=== PATIENT | male | born 1965 | race Caucasian/White ===

== ENCOUNTER 2024-05-04 21:16 | Inpatient (IN) | payer BC ==
[2024-05-04] MEDS ORDERED: fentaNYL PF 100 MCG/2 ML SYRINGE ONE (22:34)
[2024-05-04] MEDS ORDERED: PROPOFOL 20 ML ONE ×4 (22:34→23:39)
[2024-05-04] MEDS ORDERED: Acetaminophen 650 MG Suppository PR PRN (22:48)
[2024-05-04] MEDS ORDERED: Ondansetron PF 4 MG/2 ML Vial IVP PRN (22:48)
[2024-05-04] MEDS ORDERED: Ondansetron ODT 4 MG TAB PO PRN (22:48)
[2024-05-04 22:53] LABS: #Basophils 0.03 10x3/uL (0.0-0.2); %Basophils 0.2 % (0.0-1.0); %Eosinophils 0.9 % (0.0-10.0); %Lymphocytes 7.2 % (21.0-51.0); %Monocytes 7.2 % (0.0-10.0); %Neutrophils 84.3 % (42.0-75.0); Hematocrit 40.4 % (42.0-52.0); Hemoglobin 13.9 g/dL (14.0-18.0); Mean Corpuscular HGB CONC 34.4 g/dL (32.0-36.0); Mean Corpuscular Hemoglobin 30.4 pg (27.0-31.0); Mean Corpuscular Volume 88.4 fL (78.0-98.0); Mean Platelet Volume 12.8 fL (7.4-10.4); Platelet Count 252 10x3/uL (130-400); RBC Distribution Width 12.1 % (11.5-14.5); Red Blood Cell (RBC) Count 4.57 mill/uL (4.70-6.10)
[2024-05-04 23:21] LABS: ALT (SGPT) 29 U/L (8-55); AST (SGOT) 20 U/L (5-34); Albumin 3.5 g/dL (3.5-5.0); Alkaline Phosphatase 97 U/L (40-110); Anion Gap 15 mmol/L (10-20); BUN (Urea Nitrogen) 14 mg/dL (8.4-25.7); Bilirubin, Total 0.6 mg/dL (0.2-1.2); Calc. Creatinine Clearance 0 mL/min (70-130); Calcium 8.5 mg/dL (7.8-10.44); Carbon Dioxide 18 mmol/L (22-29); Chloride 106 mmol/L (98-107); Estimated GFR 71; Globulin 2.8 g/dL (2.4-3.5); Glucose 245 mg/dL (70-105); Potassium 4.1 mmol/L (3.5-5.1); Protein, Total 6.3 g/dL (6.0-8.3); Sodium 135 mmol/L (136-145)
[2024-05-04] MEDS ORDERED: Promethazine HCl 25 MG/ML VIAL IM PRN (23:49)
[2024-05-04] MEDS ORDERED: Ondansetron HCl/PF 4 MG/2 ML Vial IVP PRN (23:49)
[2024-05-05 01:00] LABS: Hematocrit 36.4 % (42.0-52.0); Hemoglobin 12.1 g/dL (14.0-18.0)
[2024-05-05 01:29] VITALS: BMI 36.7
[2024-05-05] MEDS: Acetaminophen 325 MG TAB PO SCH (01:31)
[2024-05-05 04:47] LABS: Hematocrit 36.6 % (42.0-52.0); Hemoglobin 12.2 g/dL (14.0-18.0)
[2024-05-05 04:53] LABS: Hemoglobin A1c 8.1 % (4.0-6.0)
[2024-05-05 04:58] LABS: Anion Gap 10 mmol/L (10-20); BUN (Urea Nitrogen) 12 mg/dL (8.4-25.7); Calc. Creatinine Clearance 128 mL/min (70-130); Calcium 8.2 mg/dL (7.8-10.44); Carbon Dioxide 23 mmol/L (22-29); Chloride 108 mmol/L (98-107); Estimated GFR 77; Glucose 219 mg/dL (70-105); Potassium 4.7 mmol/L (3.5-5.1); Sodium 136 mmol/L (136-145)
[2024-05-05 06:03] VITALS: BP 118/61
[2024-05-05] MEDS: Lactated Ringer's 1,000 ML IV SCH (07:00)
[2024-05-05 07:45] LABS: Hemoglobin 10.3 g/dL (14.0-18.0); Platelet Count 163 10x3/uL (130-400)
[2024-05-05] MEDS: Atorvastatin Calcium 20 MG TAB PO SCH (08:19)
[2024-05-05] MEDS: FLU (Fluarix Triv) TS24-25(6MOS UP)/PF 45 MCG/0.5 ML Syringe IM ONE (08:19)
[2024-05-05] MEDS: Lisinopril 20 MG TAB PO SCH (08:19)
[2024-05-05] MEDS: metFORMIN XR 500 MG ER.TAB PO SCH (08:19)
[2024-05-05] MEDS: Famotidine 20 MG TAB PO SCH (08:19)
[2024-05-05] MEDS: Famotidine/PF 20 mg/2ml Vial SLOW IVP SCH (08:29)
[2024-05-05] MEDS: GoLYTELY 4,000 ml Bottle PO SCH (08:29)
[2024-05-05 09:43] LABS: Hematocrit 31.2 % (42.0-52.0); Hemoglobin 10.5 g/dL (14.0-18.0)
[2024-05-05] MEDS: Insulin Lispro 100 UNIT/ML 10 ML VIAL SC PRN (10:59)
[2024-05-05] MEDS ORDERED: PROPOFOL 20 ML ONE ×3 (15:20→16:57)
[2024-05-05] MEDS ORDERED: Midazolam HCl 2 mg/2 ml Vial ONE (15:20)
[2024-05-05] MEDS ORDERED: Lidocaine 2% PF 5 ML VIAL ONE (15:20)
[2024-05-05] MEDS ORDERED: PHENYLEPHRINE-NS 100 MCG/ML 10 ML SYRINGE ONE (15:50)
[2024-05-05 20:19] VITALS: TEMP 98.5
[2024-05-05] MEDS: Insulin Glargine 30 UNITS/0.3 ML VIAL SC SCH (20:38)
[2024-05-06 03:07] LABS: #Basophils Less than 0.03 10x3/uL (0.0-0.2); %Basophils 0.2 % (0.0-1.0); %Eosinophils 4.3 % (0.0-10.0); %Monocytes 10.1 % (0.0-10.0); %Neutrophils 59.1 % (42.0-75.0); Hemoglobin 9.8 g/dL (14.0-18.0); Mean Corpuscular HGB CONC 33.8 g/dL (32.0-36.0); Mean Corpuscular Hemoglobin 30.6 pg (27.0-31.0); Mean Corpuscular Volume 90.6 fL (78.0-98.0); Mean Platelet Volume 12.2 fL (7.4-10.4); Platelet Count 178 10x3/uL (130-400); RBC Distribution Width 12.4 % (11.5-14.5)
[2024-05-06 04:53] LABS: Anion Gap 10 mmol/L (10-20); BUN (Urea Nitrogen) 8 mg/dL (8.4-25.7); Calc. Creatinine Clearance 136 mL/min (70-130); Calcium 7.9 mg/dL (7.8-10.44); Carbon Dioxide 21 mmol/L (22-29); Chloride 111 mmol/L (98-107); Estimated GFR 83; Glucose 174 mg/dL (70-105); Potassium 3.5 mmol/L (3.5-5.1); Sodium 138 mmol/L (136-145)
== END 2024-05-06 12:04 | disposition home or self-care (01) | DRG 920 ==
LOC: ERS 21:16 → SDC/OP 22:49 → 2NO 05-05 00:06 → CCU 05-05 06:37 → OBSVTOIN 05-05 06:37 → IMCU/EMU 05-05 23:11
PROVIDERS: ADMIT Student in an Organized Health Care Education/Training Program; ATTEND Internal Medicine
PROC: 0W3P8ZZ Control Bleeding in Gastrointestinal Tract, Via Natural or Artificial Opening Endoscopic (ICD-10-PCS; principal; 2024-05-04)
PROC: 0W3P8ZZ Control Bleeding in Gastrointestinal Tract, Via Natural or Artificial Opening Endoscopic (ICD-10-PCS; 2024-05-05)
DX: K91.840 Postprocedural hemorrhage of a digestive system organ or structure following a digestive system procedure (principal); D62 Acute posthemorrhagic anemia; E78.5 Hyperlipidemia, unspecified; I10 Essential (primary) hypertension; E11.9 Type 2 diabetes mellitus without complications; I95.9 Hypotension, unspecified; K21.9 Gastro-esophageal reflux disease without esophagitis; Z79.899 Other long term (current) drug therapy; E66.9 Obesity, unspecified; Z68.36 Body mass index [BMI] 36.0-36.9, adult
CPT/HCPCS: 36415; 36416; 80048; 80053; 83036; 85014; 85018; 85025; 86850; 86900; 86901; G0378; J1815; J2250; J2704; J3490; J7120